=== PATIENT | male | born 1985 | race Caucasian/White ===

== ENCOUNTER 2016-06-02 21:16 | Emergency (ER) | payer MEDICAID, OTHER ==
[2016-06-02] MEDS ORDERED: Ketorolac 60 MG/2 ML SDV IM ONE (22:34)
[2016-06-02 22:46] VITALS: BP 121/75
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
--- NOTE | 2016-06-05 09:31 | CR ---
Shoulder Comp Lt HISTORY: Trauma COMPARISON: None FINDINGS: Subtle fracture to the scapula just inferior to the margin of the glenoid with persistent lucency in this region. Proximal humerus and visualized clavicle appear normal. Impression: Fracture of the scapula.
--- NOTE | 2016-06-05 09:33 | CR ---
Ribs 3V wo Chest Lt HISTORY: Trauma COMPARISON: None FINDINGS: Minimally displaced fracture of the scapula at its inferior margin to the glenoid. The left ribs demonstrate probable subtle fracture to the lateral aspect of the left fifth rib seen on first image.
== END 2016-06-02 22:57 | disposition home or self-care (01) ==
LOC: JP.ED 21:16
DX: S42.115A Nondisplaced fracture of body of scapula, left shoulder, initial encounter for closed fracture (principal); F32.9 Major depressive disorder, single episode, unspecified; V28.4XXA Motorcycle driver injured in noncollision transport accident in traffic accident, initial encounter
CPT/HCPCS: 71101; 73030; 96372; 99283; J1885

== ENCOUNTER 2016-06-28 19:09 | Emergency (ER) | payer MEDICAID, OTHER ==
[2016-06-28 19:40] VITALS: BP 126/80
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
--- NOTE | 2016-06-29 09:22 | CR ---
Comminuted fracture of the scapular body. As visualized the lateral view. Fracture appears to be jus t inferior to the glenoid extends throughout the width of the scapula.
--- NOTE | 2016-06-29 09:24 | CR ---
Fracture of the scapular body. Left humerus is intact without dislocation.
== END 2016-06-28 21:13 | disposition home or self-care (01) ==
LOC: JP.ED 19:09
DX: S42.112A Displaced fracture of body of scapula, left shoulder, initial encounter for closed fracture (principal); S90.512A Abrasion, left ankle, initial encounter; Z79.899 Other long term (current) drug therapy; F32.9 Major depressive disorder, single episode, unspecified; W22.8XXA Striking against or struck by other objects, initial encounter
CPT/HCPCS: 73010-26-LT; 73010-LT; 73030-26-LT; 73030-LT; 99283; 99284

== ENCOUNTER 2020-10-04 20:39 | Emergency (ER) | payer MEDICAID ==
[2020-10-04 21:19] VITALS: BP 111/65; PULSE 55
--- NOTE | 2020-10-04 21:42 | EDM.PDOC ---
ED HPI GENERAL MEDICAL PROBLEM - General Chief Complaint: Upper Extremity Injury/Pain Stated Complaint: R SHOULDER Time Seen by Provider: 10/04/20 21:10 Source of Information: Reports: Patient History Limitations: Reports: No Limitations - History of Present Illness INITIAL COMMENTS - FREE TEXT/NARRATIVE: 35-year-old male fell off a ladder while painting. He fell hard on the right shoulder and right side of his head, no loss of consciousness but has significant pain in the clavicle area of the right shoulder. Pain in shoulder. No shortness of breath Onset: Sudden Duration: Hour(s): (Within the last hour) Location: Reports: Head, Neck, Upper Extremity, Right Quality: Reports: Sharp, Stabbing Improves with: Reports: Movement Associated Symptoms: Reports: No Other Symptoms (Denies headache, no shortness of breath, no neck pain) Right Shoulder Pain Score (Numeric/FACES): 6 - Related Data Allergies Allergy/AdvReac Type Severity Reaction Status Date / Time No Known Allergies Allergy Verified 10/04/20 21:10 Home Meds: Home Meds NK [No Known Home Meds] 10/04/20 [History] Past Medical History HEENT History: Reports: None Cardiovascular History: Reports: None Respiratory History: Reports: None Gastrointestinal History: Reports: None Genitourinary History: Reports: None Musculoskeletal History: Reports: Fracture, Other (See Below) Other Musculoskeletal History: patient had recent scapular fracture 05/2016. Neurological History: Reports: None Psychiatric History: Reports: ADHD, Depression Endocrine/Metabolic History: Reports: None Hematologic History: Reports: None Immunologic History: Reports: None Oncologic (Cancer) History: Reports: None Dermatologic History: Reports: None - Past Surgical History Musculoskeletal Surgical History: Reports: Carpal Tunnel Social & Family History - Tobacco Use Tobacco Use Status *Q: Current Every Day Tobacco User Years of Tobacco use: 10 Packs/Tins Daily: 0.5 - Caffeine Use Caffeine Use: Reports: Coffee - Recreational Drug Use Recreational Drug Use: Yes Drug Use in Last 12 Months: No Recreational Drug Type: Reports: Marijuana/Hashish Recreational Drug Use Frequency: Not Used In Over 6 Months Review of Systems - Review of Systems Review Of Systems: See Below Constitutional: Denies: Fever Ears: Reports: Other (Superficial abrasion on the helix of the right ear) Mouth/Throat: Reports: No Symptoms Respiratory: Denies: Shortness of Breath, Cough Cardiovascular: Denies: Chest Pain Musculoskeletal: Reports: Other (Pain over the anterior right shoulder) Skin: Reports: Other (Superficial abrasions of the right shoulder) ED EXAM, GENERAL - Physical Exam Exam: See Below Exam Limited By: No Limitations General Appearance: Alert, No Apparent Distress, Other Eye Exam: Bilateral Eye: Normal Inspection Ears: Normal TMs, Other (1 x 1 cm abrasion on the helix of the right ear, no rep air needed) Throat/Mouth: Normal Inspection Neck: Supple, Non-Tender Respiratory/Chest: No Respiratory Distress, Lungs Clear Cardiovascular: Regular Rate, Rhythm GI/Abdominal: Soft, Non-Tender Extremities: Other (Very tender to palpation across the clavicle on the right side, some increased pain with passive range of motion of the shoulder but no resistance, no crepitus) Neurological: Alert, Oriented, Other (Grasp strength on the right side is adequate and symmetric with the left) Skin Exam: Other (A few superficial skin abrasions on top of the right shoulder) Course - Vital Signs Last Recorded V/S: Last Vital Signs Temp 97.9 F 10/04/20 21:15 Pulse 55 L 10/04/20 21:15 Resp 16 10/04/20 21:15 BP 111/65 10/04/20 21:15 Pulse Ox 98 10/04/20 21:15 - Orders/Labs/Meds Orders: Active Orders 24 hr Category Date Time Status Consult to Orthopedic Clinic [CONS] Routine Cons 10/04/20 21:39 Active Chest 2V [CR] Stat Exams 10/04/20 21:06 Ordered Shoulder Comp Rt [CR] Stat Exams 10/04/20 21:06 Taken DME for Discharge [COMM] Stat Oth 10/04/20 21:34 Ordered Meds: Medications Discontinued Medications Generic Name Dose Route Start Last Admin Trade Name Freq PRN Reason Stop Dose Admin Bacitracin 1 dose 10/04/20 21:43 10/04/20 21:48 Bacitracin Oint 1 Gm U/D Packet TOP 10/04/20 21:44 1 dose ONETIME ONE Administration - Re-Assessments/Exams Free Text/Narrative Re-Assessment/Exam: 10/05/20 01:10 Tetanus status was 2015, no booster needed. An x-ray of the right shoulder and chest x-ray were obtained, this showed a nondisplaced fracture of the right clavicle. Patient was placed in a sling, given 10 hydrocodone for extra pain control and his wounds were cleaned and dressed and covered with antibiotic ointment. He is to keep his wounds clean while healing, and get an orthopedic consultation to follow his clavicle fracture. Departure - Departure Time of Disposition: 22:04 Disposition: Home, Self-Care 01 Clinical Impression: Right clavicle fracture Qualifiers: Encounter type: initial encounter Clavicle location: shaft Fracture type: closed Fracture alignment: nondisplaced Qualified Code(s): S42.024A - Nondisplaced fracture of shaft of right clavicle, initial encounter for closed fracture Abrasion of right ear Qualifiers: Encounter type: initial encounter Qualified Code(s): S00.411A - Abrasion of right ear, initial encounter Shoulder abrasion Qualifiers: Encounter type: initial encounter Laterality: right Qualified Code(s): S40.211A - Abrasion of right shoulder, initial encounter - Discharge Information Instructions: Clavicle Fracture, [id number], Abrasion, [id number] Referrals: PCP,None [Primary Care Provider] - Forms: ED Department Discharge Care Plan Goals: Wear sling until recheck, you should be contacted by orthopedics for an appointment time. A regular dose of ibuprofen or naproxen will be helpful, cool compresses or ice to sore areas and keep abrasions clean while healing. Add stronger pain medication if needed as prescribed. Sepsis Event Note (ED) - Evaluation Sepsis Screening Result: No Definite Risk - Focused Exam Vital Signs: Vital Signs Temp Pulse Resp BP Pulse Ox 10/04/20 21:15 97.9 F 55 L 16 111/65 98 - My Orders Last 24 Hours: My Active Orders 10/04/20 21:06 Chest 2V [CR] Stat Shoulder Comp Rt [CR] Stat 10/04/20 21:34 DME for Discharge [COMM] Stat 10/04/20 21:39 Consult to Orthopedic Clinic [CONS] Routine - Assessment/Plan Last 24 Hours: My Active Orders 10/04/20 21:06 Chest 2V [CR] Stat Shoulder Comp Rt [CR] Stat 10/04/20 21:34 DME for Discharge [COMM] Stat 10/04/20 21:39 Consult to Orthopedic Clinic [CONS] Routine
[2020-10-04] MEDS ORDERED: Bacitracin Oint 1 GM U/D Packet TOP ONE (21:43)
--- NOTE | 2020-10-05 09:20 | CR ---
Shoulder Comp Rt CLINICAL HISTORY: Fall FINDINGS: There is a healing fracture through the mid clavicle. AC joint appears intact. Collateral humeral joint appears intact Impression: Nondisplaced fracture mid clavicle
--- NOTE | 2020-10-07 06:39 | CR ---
CHEST: 2 view CLINICAL HISTORY:Fall COMPARISON:None FINDINGS: The heart size, pulmonary vascularity and hilar structures are normal. No infiltrate effusion or pneumothorax is seen. IMPRESSION: No acute cardiopulmonary process.
== END 2020-10-04 22:04 | disposition home or self-care (01) ==
LOC: JP.ED 20:39
DX: S42.024A Nondisplaced fracture of shaft of right clavicle, initial encounter for closed fracture (principal); S00.411A Abrasion of right ear, initial encounter; S40.211A Abrasion of right shoulder, initial encounter; Z72.0 Tobacco use; W11.XXXA Fall on and from ladder, initial encounter
CPT/HCPCS: 71046; 71046-26; 73030-26-RT; 73030-RT; 99283-25